=== PATIENT | female | born 1965 | race Two or more races ===

== ENCOUNTER → 2016-07-09 | Outpatient (CLI) | payer BC ==
[~2016-07-09] MED LIST: ATEN50TA; FLUC150T38; HYDROXYCHLOROQUINE; LEVO112T4; MEDR10TA9; PHEN60IN; RANI25TA
[2016-07-09 08:34] LABS: Urine RBC None Seen /hpf (0 - 4)
[2016-07-09 08:48] LABS: Basophils # (auto) 0 uL; Basophils % (auto) 0.5 % (0.0-2.0); Eosinophils # (auto) 0.1 uL; Eosinophils % (auto) 1.9 % (0.0-7.0); Hematocrit 39.8 % (36.0-46.0); Hemoglobin 13.5 g/dL (12.2-16.2); Lymphocytes # (auto) 1.5 uL; Lymphocytes % (auto) 27.4 % (10.0-50.0); Mean Corpuscular Hemoglobin 29.7 pg (28.0-32.0); Mean Corpuscular Volume 87.4 fL (80.0-100.0); Mean Platelet Volume 8.4 fL (7.4-10.4); Monocytes # (auto) 0.4 uL; Monocytes % (auto) 7.5 % (0.0-12.0); Neutrophils # (auto) 3.3 uL; Neutrophils % (auto) 62.7 % (37.0-80.0); Platelet Count (auto) 276 10^3/uL (140-450); Red Cell Distribution Width 14.1 % (11.6-16.0); White Blood Cell 5.3 10^3/uL (4.4-10.8)
[2016-07-09 09:03] LABS: Urine Bilirubin Negative (Negative); Urine Blood Negative /uL (Negative); Urine Color Yellow (Yellow); Urine Glucose Normal (Normal); Urine Ketone Negative (Negative); Urine Nitrite Negative (Negative); Urine Squamous Epithelial Cell FEW /hpf (<5); Urine Urobilinogen Normal (Negative); Urine pH 5.5 (5.0-8.0)
[2016-07-09 09:38] LABS: Albumin 3.3 g/dL (3.4-5.0); BUN/Creatinine Ratio 18.6; Calcium 8.8 mg/dL (8.5-10.1); Phosphorus 3.1 mg/dL (2.5-4.90)
[2016-07-09 10:36] LABS: Potassium 4.1 mmol/L (3.5-5.1)
== END | disposition home or self-care (01) ==
LOC: LAB 08:19
PROVIDERS: ATTEND Internal Medicine
DX: Z00.00 Encounter for general adult medical examination without abnormal findings (principal); I10 Essential (primary) hypertension; M05.06 Felty's syndrome, knee; E11.9 Type 2 diabetes mellitus without complications
CPT/HCPCS: 36415; 80061; 80069; 81001; 83970; 85025; 85652; 86141

== ENCOUNTER → 2017-04-18 | Outpatient (CLI) | payer BC ==
[2017-04-18 09:05] LABS: Basophils # (auto) 0 uL; Basophils % (auto) 0.7 % (0.0-2.0); Eosinophils # (auto) 0.1 uL; Eosinophils % (auto) 1.9 % (0.0-7.0); Hematocrit 39.5 % (36.0-46.0); Hemoglobin 13.2 g/dL (12.2-16.2); Lymphocytes # (auto) 0.9 uL; Lymphocytes % (auto) 19.8 % (10.0-50.0); Mean Corpuscular Hemoglobin 29.1 pg (28.0-32.0); Mean Corpuscular Hgb Conc. 33.4 g/dL (32.0-36.0); Mean Corpuscular Volume 87.1 fL (80.0-100.0); Monocytes # (auto) 0.4 uL; Monocytes % (auto) 9.1 % (0.0-12.0); Neutrophils # (auto) 3.3 uL; Neutrophils % (auto) 68.5 % (37.0-80.0); Nucleated Red Blood Cells % 0.1 %; Platelet Count (auto) 236 10^3/uL (140-450); Red Blood Cells 4.54 10^6/uL (4.0-5.20); Red Cell Distribution Width 13.9 % (11.8-14.3); White Blood Cell 4.8 10^3/uL (4.4-10.8)
[2017-04-18 09:40] LABS: Urine Bacteria NONE SEEN /hpf (None Seen); Urine Blood Negative /uL (Negative); Urine Hyaline Cast FEW /lpf (0 - 2); Urine Mucus FEW (None Seen); Urine Specific Gravity 1.025 (1.001-1.035); Urine WBC 4 /hpf (0 - 5)
[2017-04-18 09:42] LABS: Albumin 3.1 g/dL (3.4-5.0); BUN/Creatinine Ratio 12.2; Bilirubin, Total 0.5 mg/dL (0.2-1.0); CRP High Sensitivity 0.17 mg/dL (< 0.3); Calcium 8.6 mg/dL (8.5-10.1); Phosphorus 3.4 mg/dL (2.5-4.90); Potassium 4.3 mmol/L (3.5-5.1); Total Protein 7.3 g/dL (6.4-8.2); Uric Acid 5.5 mg/dL (2.6-6.0)
[2017-04-18 09:48] LABS: Protein, Urine 121.3 mg/dL (0.0-11.9)
== END | disposition home or self-care (01) ==
LOC: LAB 08:27
DX: I12.9 Hypertensive chronic kidney disease with stage 1 through stage 4 chronic kidney disease, or unspecified chronic kidney disease (principal); N18.3 Chronic kidney disease, stage 3 (moderate); D63.1 Anemia in chronic kidney disease; E21.3 Hyperparathyroidism, unspecified; E78.5 Hyperlipidemia, unspecified; M06.9 Rheumatoid arthritis, unspecified; E78.00 Pure hypercholesterolemia, unspecified; E03.8 Other specified hypothyroidism
CPT/HCPCS: 36415; 80053; 80069; 81001; 82306; 82570; 83036; 83970; 84156; 84550; 85025; 85652; 86141

== ENCOUNTER → 2018-01-06 | Outpatient (CLI) | payer BC ==
[2018-01-06 08:24] LABS: Basophils # (auto) 0 uL; Eosinophils # (auto) 0.1 uL; Eosinophils % (auto) 1.6 % (0.0-7.0); Hematocrit 39.6 % (36.0-46.0); Hemoglobin 13.2 g/dL (12.2-16.2); Lymphocytes # (auto) 1.6 uL; Lymphocytes % (auto) 32.6 % (10.0-50.0); Mean Corpuscular Hemoglobin 30.5 pg (28.0-32.0); Mean Corpuscular Hgb Conc. 33.4 g/dL (32.0-36.0); Mean Corpuscular Volume 91.2 fL (80.0-100.0); Monocytes # (auto) 0.5 uL; Monocytes % (auto) 9.2 % (0.0-12.0); Neutrophils # (auto) 2.7 uL; Neutrophils % (auto) 55.6 % (37.0-80.0); Nucleated Red Blood Cells % 0.1 %; Platelet Count (auto) 235 10^3/uL (140-450); Red Blood Cells 4.34 10^6/uL (4.0-5.20); Red Cell Distribution Width 14.7 % (11.8-14.3); White Blood Cell 4.9 10^3/uL (4.4-10.8)
[2018-01-06 08:49] LABS: Albumin 3.2 g/dL (3.4-5.0); BUN/Creatinine Ratio 19.2; Bilirubin, Total 0.3 mg/dL (0.2-1.0); Calcium 8.9 mg/dL (8.5-10.1); Potassium 4.2 mmol/L (3.5-5.1); Total Protein 7.3 g/dL (6.4-8.2)
== END | disposition home or self-care (01) ==
LOC: LAB 08:02
PROVIDERS: ATTEND Physician Assistant
DX: Z00.01 Encounter for general adult medical examination with abnormal findings (principal); I12.9 Hypertensive chronic kidney disease with stage 1 through stage 4 chronic kidney disease, or unspecified chronic kidney disease; N18.4 Chronic kidney disease, stage 4 (severe); M06.9 Rheumatoid arthritis, unspecified; E03.9 Hypothyroidism, unspecified; E55.9 Vitamin D deficiency, unspecified; E78.2 Mixed hyperlipidemia; K21.9 Gastro-esophageal reflux disease without esophagitis
CPT/HCPCS: 36415; 80053; 80061; 82306; 84443; 85025

== ENCOUNTER 2018-05-12 22:27 | Inpatient (IN) | payer BC ==
[~2018-05-12] VITALS: Ht 157.5 cm; Wt 135.7 kg
[2018-05-13 02:15] LABS: Basophils # (auto) 0 uL; Basophils % (auto) 0.6 % (0.0-2.0); Eosinophils # (auto) 0 uL; Hematocrit 35.4 % (36.0-46.0); Hemoglobin 11.6 g/dL (12.2-16.2); Lymphocytes # (auto) 0.5 uL; Lymphocytes % (auto) 6.8 % (10.0-50.0); Mean Corpuscular Hemoglobin 29.3 pg (28.0-32.0); Mean Corpuscular Hgb Conc. 32.8 g/dL (32.0-36.0); Mean Corpuscular Volume 89.2 fL (80.0-100.0); Monocytes # (auto) 0.2 uL; Monocytes % (auto) 3.2 % (0.0-12.0); Neutrophils # (auto) 6.4 uL; Neutrophils % (auto) 89.4 % (37.0-80.0); Nucleated Red Blood Cells % 0.1 %; Platelet Count (auto) 161 10^3/uL (140-450); Red Blood Cells 3.97 10^6/uL (4.0-5.20); Red Cell Distribution Width 14.4 % (11.8-14.3); White Blood Cell 7.2 10^3/uL (4.4-10.8)
[2018-05-13 02:29] LABS: Alanine Aminotransferase 30 U/L (13-56); Albumin 2.7 g/dL (3.4-5.0); Anion Gap 8 (5-15); Aspartate Aminotransferase 44 U/L (15-37); Blood Urea Nitrogen 19 mg/dL (7-18); Calcium 7.9 mg/dL (8.5-10.1); Carbon Dioxide 25 mmol/L (21-32); Chloride 104 mmol/L (98-107); Glucose 91 mg/dL (74-106); Potassium 3.7 mmol/L (3.5-5.1); Sodium 137 mmol/L (136-145)
[2018-05-13 02:34] LABS: Alkaline Phosphatase 63 U/L (45-117); BUN/Creatinine Ratio 15.6; Bilirubin, Total 0.3 mg/dL (0.2-1.0); GFR African American 60 mL/min; GFR Non-African American 49 mL/min; Total Protein 6.9 g/dL (6.4-8.2)
[2018-05-13] MEDS ORDERED: SPIRONOLACTONE 25 MG TAB PO ONE (08:15)
[2018-05-13] MEDS ORDERED: cefTRIAXone 1GM/50ML D5W 50 ML IV ONE (08:15)
[2018-05-13] MEDS ORDERED: FUROSEMIDE 40 MG/4 ML VIAL IV ONE (08:15)
[2018-05-13 10:42] LABS: Urine Bacteria FEW /hpf (None Seen); Urine Blood Negative /uL (Negative); Urine Mucus FEW (None Seen); Urine Specific Gravity 1.012 (1.001-1.035); Urine WBC 1 /hpf (0 - 5)
[2018-05-13] MEDS ORDERED: MORPHINE SULFATE 4 MG/ML SYR/VIAL IV PRN ×2 (11:00)
[2018-05-13] MEDS ORDERED: ONDANSETRON HCL 4 MG/2 ML VIAL IV PRN (11:00)
[2018-05-13] MEDS ORDERED: HYDROcodone-ACET 5/325MG TAB PO PRN (11:00)
[2018-05-13] MEDS ORDERED: VANCOMYCIN PER PHARMACY 0 MG IV SCH (11:00)
[2018-05-13] MEDS ORDERED: ACETAMINOPHEN 500 MG TAB PO PRN (11:00)
[2018-05-13] MEDS ORDERED: NITROGLYCERIN 0.4 MG SL TAB SL PRN (11:00)
[2018-05-13] MEDS ORDERED: BACL10TA PO (11:19)
[2018-05-13] MEDS ORDERED: TRAM50TA2 PO (11:19)
[2018-05-13] MEDS ORDERED: ATOR1TAB PO (11:19)
[2018-05-13] MEDS ORDERED: CYCL5TAB PO (11:19)
[2018-05-13] MEDS ORDERED: ATEN-60 PO (11:19)
[2018-05-13] MEDS ORDERED: HYDR-4441 PO (11:19)
[2018-05-13] MEDS ORDERED: DEXL60CA3 PO (11:19)
[2018-05-13] MEDS ORDERED: FURO40TA4 PO (11:19)
[2018-05-13] MEDS ORDERED: LEVO112T4 PO (11:19)
[2018-05-13] MEDS ORDERED: AML5T PO (11:19)
[2018-05-13] MEDS ORDERED: DICL-176 PO (11:19)
[2018-05-13] MEDS ORDERED: PILO7.5T4 PO (11:19)
[2018-05-13] MEDS ORDERED: LISI-646 PO (11:19)
[2018-05-13] MEDS: AZITHROMYCIN 500MG/ 250ML 250 ML IV SCH (11:38)
[2018-05-13] MEDS: ALBUTEROL SULF 2.5 MG/0.5ML(0.5%) NEB SOLN NEB SCH ×2 (12:15→17:50)
[2018-05-13] MEDS: IPRATROPIUM BROM 0.5 MG/2.5ML INH SOL NEB SCH ×2 (12:15→17:50)
[2018-05-13] MEDS: VANCOMYCIN 1GM/250ML 250 ML IV SCH (13:02)
[2018-05-13] MEDS: PILOCARPINE 5 MG TAB PO SCH ×2 (14:44→22:28)
[2018-05-13 14:45] VITALS: BP 125/72
[2018-05-13 16:23] VITALS: BP 125/72
[2018-05-13 18:00] VITALS: BP 124/69
[2018-05-13] MEDS: ACETAMINOPHEN 500 MG TAB PO PRN (19:41)
[2018-05-13 21:47] VITALS: BP 108/63
[2018-05-13] MEDS: HYDROXYCHLOROQUINE SULFATE 200 MG TAB PO SCH (22:28)
[2018-05-13] MEDS: OSELTAMIVIR 75 MG CAP PO SCH (22:28)
[2018-05-13] MEDS: ATENOLOL 25 MG TAB PO SCH (22:29)
[2018-05-14] MEDS: VANCOMYCIN 1GM/250ML 250 ML IV SCH ×2 (00:42→13:50)
[2018-05-14 02:03] VITALS: BP 132/66
[2018-05-14] MEDS: PILOCARPINE 5 MG TAB PO SCH ×3 (06:31→22:28)
[2018-05-14] MEDS: ACETAMINOPHEN 500 MG TAB PO PRN (06:32)
[2018-05-14] MEDS ORDERED: LEVOTHYROXINE SODIUM 25 MCG TAB PO SCH (07:00)
[2018-05-14] MEDS: IPRATROPIUM BROM 0.5 MG/2.5ML INH SOL NEB SCH ×4 (07:15→18:20)
[2018-05-14] MEDS: ALBUTEROL SULF 2.5 MG/0.5ML(0.5%) NEB SOLN NEB SCH ×4 (07:15→18:20)
[2018-05-14 07:17] VITALS: BP 120/64
[2018-05-14 07:55] LABS: Basophils # (auto) 0 uL; Basophils % (auto) 0.3 % (0.0-2.0); Eosinophils # (auto) 0 uL; Hematocrit 32.2 % (36.0-46.0); Hemoglobin 10.7 g/dL (12.2-16.2); Lymphocytes # (auto) 0.5 uL; Lymphocytes % (auto) 7.5 % (10.0-50.0); Mean Corpuscular Hemoglobin 29.2 pg (28.0-32.0); Mean Corpuscular Hgb Conc. 33.3 g/dL (32.0-36.0); Mean Corpuscular Volume 87.8 fL (80.0-100.0); Monocytes # (auto) 0.4 uL; Monocytes % (auto) 6.3 % (0.0-12.0); Neutrophils # (auto) 5.5 uL; Neutrophils % (auto) 85.9 % (37.0-80.0); Platelet Count (auto) 137 10^3/uL (140-450); Red Blood Cells 3.66 10^6/uL (4.0-5.20); Red Cell Distribution Width 14.1 % (11.8-14.3); White Blood Cell 6.4 10^3/uL (4.4-10.8)
[2018-05-14 08:12] LABS: Potassium 3.7 mmol/L (3.5-5.1)
[2018-05-14 08:17] LABS: BUN/Creatinine Ratio 15.8
[2018-05-14] MEDS: HYDROXYCHLOROQUINE SULFATE 200 MG TAB PO SCH ×2 (09:12→22:28)
[2018-05-14] MEDS: OSELTAMIVIR 75 MG CAP PO SCH ×2 (09:12→22:28)
[2018-05-14] MEDS: AZITHROMYCIN 500MG/ 250ML 250 ML IV SCH (09:12)
[2018-05-14] MEDS: PANTOPRAZOLE 40 MG TAB PO SCH (09:12)
[2018-05-14] MEDS: ATENOLOL 25 MG TAB PO SCH ×2 (09:24→22:29)
[2018-05-14] MEDS: NICOTINE 21MG/24 HR TOPICAL PATCH TD SCH (09:24)
[2018-05-14] MEDS: LISINOPRIL 5 MG TAB PO SCH (09:25)
[2018-05-14] MEDS ORDERED: ATORVASTATIN 20 MG TAB PO SCH (10:00)
[2018-05-14 10:43] VITALS: BP 114/59
[2018-05-14] MEDS: SODIUM CHLORIDE 0.9% 1,000 ML IV SCH (16:48)
[2018-05-14] MEDS: PIPERACILLIN-TAZOB 3.375GM 100 ML IV SCH (18:06)
[2018-05-15] MEDS: IPRATROPIUM BROM 0.5 MG/2.5ML INH SOL NEB SCH ×5 (00:10→23:59)
[2018-05-15] MEDS: ALBUTEROL SULF 2.5 MG/0.5ML(0.5%) NEB SOLN NEB SCH ×5 (00:10→23:59)
[2018-05-15] MEDS: PIPERACILLIN-TAZOB 3.375GM 100 ML IV SCH ×5 (01:30→23:49)
--- NOTE | 2018-05-15 02:51 | NUR ---
FIO2 TITRATED TO 75%
[2018-05-15] MEDS: PILOCARPINE 5 MG TAB PO SCH ×3 (06:22→21:41)
--- NOTE | 2018-05-15 06:50 | NUR ---
Respiratory note: RECEIVED PATIENT ON HFNC WITH THE CHARTED SETTINGS. SPO2 96%. SHE IS RESTING COMFORTABLY AND TOLERATING HIGH FLOW WELL. FIO2 DECREASED TO 70% AT THIS TIME. LI VELÁZQUEZ MADE AWARE OF CHANGE. WILL CONTINUE TO TITRATE HIGH FLOW NEEDED.
[2018-05-15] MEDS: LEVOTHYROXINE SODIUM 25 MCG TAB PO SCH (07:00)
[2018-05-15] MEDS: SODIUM CHLORIDE 0.9% 1,000 ML IV SCH (09:12)
[2018-05-15 09:46] LABS: BUN/Creatinine Ratio 11.8; Calcium 8.4 mg/dL (8.5-10.1); Magnesium 2.4 mg/dL (1.6-2.6); Potassium 3.9 mmol/L (3.5-5.1)
[2018-05-15] MEDS ORDERED: ATORVASTATIN 20 MG TAB PO SCH (10:00)
[2018-05-15] MEDS: NICOTINE 21MG/24 HR TOPICAL PATCH TD SCH (10:00)
[2018-05-15] MEDS: AZITHROMYCIN 500MG/ 250ML 250 ML IV SCH (10:08)
[2018-05-15] MEDS: FUROSEMIDE 40 MG TAB PO SCH (10:08)
[2018-05-15] MEDS: POTASSIUM CHL 20 Meq TABLET PO SCH (10:08)
[2018-05-15] MEDS: OSELTAMIVIR 75 MG CAP PO SCH ×2 (10:09→21:41)
[2018-05-15] MEDS: LISINOPRIL 5 MG TAB PO SCH (10:09)
[2018-05-15] MEDS: PANTOPRAZOLE 40 MG TAB PO SCH (10:09)
[2018-05-15] MEDS: ENOXAPARIN SOD 40 MG/0.4 ML SYRINGE SC SCH (10:09)
[2018-05-15] MEDS: HYDROXYCHLOROQUINE SULFATE 200 MG TAB PO SCH ×2 (10:09→21:41)
[2018-05-15] MEDS: ATENOLOL 25 MG TAB PO SCH ×2 (10:11→21:41)
[2018-05-15 10:25] VITALS: BP 144/76
[2018-05-15 10:32] LABS: Basophils # (auto) 0 uL; Basophils % (auto) 0.3 % (0.0-2.0); Eosinophils # (auto) 0 uL; Hematocrit 31.5 % (36.0-46.0); Hemoglobin 10.5 g/dL (12.2-16.2); Lymphocytes # (auto) 0.6 uL; Lymphocytes % (auto) 12.1 % (10.0-50.0); Mean Corpuscular Hemoglobin 29.3 pg (28.0-32.0); Mean Corpuscular Hgb Conc. 33.5 g/dL (32.0-36.0); Mean Corpuscular Volume 87.5 fL (80.0-100.0); Monocytes # (auto) 0.4 uL; Monocytes % (auto) 8.9 % (0.0-12.0); Neutrophils # (auto) 3.8 uL; Neutrophils % (auto) 78.7 % (37.0-80.0); Platelet Count (auto) 156 10^3/uL (140-450); Red Blood Cells 3.59 10^6/uL (4.0-5.20); Red Cell Distribution Width 14.3 % (11.8-14.3); White Blood Cell 4.9 10^3/uL (4.4-10.8)
[2018-05-15] MEDS: VANCOMYCIN 1GM/250ML 250 ML IV SCH ×2 (12:21)
[2018-05-15] MEDS ORDERED: ALBUTEROL SULF 2.5 MG/0.5ML(0.5%) NEB SOLN NEB PRN (14:45)
[2018-05-15] MEDS ORDERED: IODIXANOL 320MG/ML 100ML BTL IV ONE (15:24)
[2018-05-15] MEDS ORDERED: IOHEXOL 350 MG/ML 100ML IJ ONE (16:05)
[2018-05-16] MEDS: SODIUM CHLORIDE 0.9% 1,000 ML IV SCH ×2 (01:53→19:41)
--- NOTE | 2018-05-16 05:47 | NUR ---
Respiratory note: CHANGED HIGH FLOW WATER WITHOUT INCIDENT.
[2018-05-16] MEDS: ALBUTEROL SULF 2.5 MG/0.5ML(0.5%) NEB SOLN NEB SCH ×3 (05:59→18:00)
[2018-05-16] MEDS: IPRATROPIUM BROM 0.5 MG/2.5ML INH SOL NEB SCH ×3 (05:59→18:00)
[2018-05-16] MEDS: PILOCARPINE 5 MG TAB PO SCH ×3 (06:00→22:00)
[2018-05-16] MEDS: LEVOTHYROXINE SODIUM 25 MCG TAB PO SCH (06:40)
[2018-05-16 06:53] LABS: Basophils # (auto) 0 uL; Basophils % (auto) 0.4 % (0.0-2.0); Calcium 8.3 mg/dL (8.5-10.1); Eosinophils # (auto) 0 uL; Eosinophils % (auto) 0.5 % (0.0-7.0); Hematocrit 29.7 % (36.0-46.0); Hemoglobin 9.8 g/dL (12.2-16.2); Lymphocytes # (auto) 0.6 uL; Lymphocytes % (auto) 14.4 % (10.0-50.0); Mean Corpuscular Hemoglobin 29.3 pg (28.0-32.0); Mean Corpuscular Hgb Conc. 33.1 g/dL (32.0-36.0); Mean Corpuscular Volume 88.5 fL (80.0-100.0); Monocytes # (auto) 0.5 uL; Monocytes % (auto) 10.5 % (0.0-12.0); Neutrophils # (auto) 3.3 uL; Neutrophils % (auto) 74.2 % (37.0-80.0); Platelet Count (auto) 180 10^3/uL (140-450); Potassium 3.9 mmol/L (3.5-5.1); Red Blood Cells 3.36 10^6/uL (4.0-5.20); White Blood Cell 4.5 10^3/uL (4.4-10.8)
[2018-05-16] MEDS: PIPERACILLIN-TAZOB 3.375GM 100 ML IV SCH ×3 (07:10→18:25)
[2018-05-16 08:18] LABS: % Iron Saturation 4.1 % (15-50)
[2018-05-16] MEDS: NICOTINE 21MG/24 HR TOPICAL PATCH TD SCH (10:00)
[2018-05-16] MEDS: AZITHROMYCIN 500MG/ 250ML 250 ML IV SCH (10:02)
[2018-05-16] MEDS: POTASSIUM CHL 20 Meq TABLET PO SCH (10:02)
[2018-05-16] MEDS: HYDROXYCHLOROQUINE SULFATE 200 MG TAB PO SCH ×2 (10:26→22:00)
[2018-05-16] MEDS: ENOXAPARIN SOD 40 MG/0.4 ML SYRINGE SC SCH (10:26)
[2018-05-16] MEDS: OSELTAMIVIR 75 MG CAP PO SCH ×2 (10:26→22:00)
[2018-05-16] MEDS: PANTOPRAZOLE 40 MG TAB PO SCH (10:26)
[2018-05-16] MEDS: FUROSEMIDE 40 MG TAB PO SCH (10:26)
[2018-05-16] MEDS: ATENOLOL 25 MG TAB PO SCH ×2 (10:26→22:00)
[2018-05-16 10:48] VITALS: BP 107/52
--- NOTE | 2018-05-16 11:48 | NUR ---
Respiratory note: TITRATED FIO2 TO 60% PT TOLERATING WELL. WILL CONTINUE TO MONITOR PT.
[2018-05-16] MEDS ORDERED: HYDROcodone-ACET 5/325MG TAB PO PRN (14:15)
[2018-05-16] MEDS ORDERED: MORPHINE SULFATE 4 MG/ML SYR/VIAL IV PRN (14:15)
[2018-05-16 18:00] VITALS: BP 130/79
[2018-05-16] MEDS: methylPREDNISolone SOD SUCC 40 MG/ML VL IV SCH (22:00)
[2018-05-17] MEDS: PIPERACILLIN-TAZOB 3.375GM 100 ML IV SCH ×4 (00:17→17:29)
[2018-05-17] MEDS: IPRATROPIUM BROM 0.5 MG/2.5ML INH SOL NEB SCH ×4 (05:50→18:41)
[2018-05-17] MEDS: ALBUTEROL SULF 2.5 MG/0.5ML(0.5%) NEB SOLN NEB SCH ×4 (05:50→18:41)
[2018-05-17 06:30] LABS: Basophils # (auto) 0 uL; Basophils % (auto) 0.1 % (0.0-2.0); Eosinophils # (auto) 0 uL; Hematocrit 31.5 % (36.0-46.0); Hemoglobin 10.5 g/dL (12.2-16.2); Lymphocytes # (auto) 0.4 uL; Lymphocytes % (auto) 10.5 % (10.0-50.0); Mean Corpuscular Hemoglobin 29.4 pg (28.0-32.0); Mean Corpuscular Hgb Conc. 33.3 g/dL (32.0-36.0); Mean Corpuscular Volume 88.2 fL (80.0-100.0); Monocytes # (auto) 0.2 uL; Monocytes % (auto) 5.6 % (0.0-12.0); Neutrophils # (auto) 3.4 uL; Neutrophils % (auto) 83.8 % (37.0-80.0); Nucleated Red Blood Cells % 0.1 %; Platelet Count (auto) 231 10^3/uL (140-450); Red Blood Cells 3.57 10^6/uL (4.0-5.20)
[2018-05-17 06:49] LABS: BUN/Creatinine Ratio 11.5; Calcium 8.8 mg/dL (8.5-10.1); Potassium 4.4 mmol/L (3.5-5.1)
[2018-05-17] MEDS ORDERED: LEVOTHYROXINE SODIUM 25 MCG TAB PO SCH (08:00)
[2018-05-17] MEDS: PILOCARPINE 5 MG TAB PO SCH ×2 (08:00→16:00)
[2018-05-17] MEDS ORDERED: LEVOTHYROXINE SODIUM 100 MCG TAB ONE (08:41)
[2018-05-17] MEDS: LEVOTHYROXINE SODIUM 100 MCG TAB PO SCH (09:02)
[2018-05-17] MEDS: POTASSIUM CHL 20 Meq TABLET PO SCH (10:00)
[2018-05-17] MEDS: NICOTINE 21MG/24 HR TOPICAL PATCH TD SCH (10:00)
[2018-05-17] MEDS: ENOXAPARIN SOD 40 MG/0.4 ML SYRINGE SC SCH (10:45)
[2018-05-17] MEDS: methylPREDNISolone SOD SUCC 40 MG/ML VL IV SCH ×2 (10:45→22:37)
[2018-05-17] MEDS: OSELTAMIVIR 75 MG CAP PO SCH ×2 (10:45→22:38)
[2018-05-17] MEDS: PANTOPRAZOLE 40 MG TAB PO SCH (10:46)
[2018-05-17] MEDS: ATENOLOL 25 MG TAB PO SCH ×2 (10:46→22:37)
[2018-05-17] MEDS: AZITHROMYCIN 500MG/ 250ML 250 ML IV SCH (10:47)
[2018-05-17] MEDS: HYDROXYCHLOROQUINE SULFATE 200 MG TAB PO SCH ×2 (10:47→22:36)
[2018-05-17] MEDS: FUROSEMIDE 40 MG TAB PO SCH (10:48)
[2018-05-17] MEDS: SODIUM CHLORIDE 0.9% 1,000 ML IV SCH (11:18)
[2018-05-17 11:54] VITALS: BP 122/65
[2018-05-17] MEDS: SODIUM FERR GLUC 62.5MG/5ML 125 MG in SODIUM CHL 0.9% 100 ML IV SCH (12:00)
--- NOTE | 2018-05-17 14:50 | NUR ---
Midline Placement to left brachial x 2 attempts. 18g/10cm in length. Flushes easily, blood return obtained from single port. Tolerated well. Primary RN notified. Lot#[id number]. Addendum: 05/17/18 at 1455 by Selene Dumont RN RN Lot#[id number]
[2018-05-17 15:35] VITALS: BP 116/72
--- NOTE | 2018-05-17 15:35 | NUR ---
Admit to [facility] Tadmitted to [facility] via gurney on manager payer, and portable 02. Patient transfered to bed, connected to unit monitoring and oxygen, and weighed by bedscale. Patient oriented to Timoteo castillo RN, unit, room, bed, and unit policies regarding patient care and visiting hours. All questions and concerns addressed, patient verbalized understanding. NOTE:
[2018-05-17 16:27] VITALS: BP 116/72
--- NOTE | 2018-05-17 17:05 | NUR ---
COMPLETE LINEN CHANGE PERFORMED
[2018-05-17 19:48] VITALS: BP 127/72
[2018-05-18] MEDS: PIPERACILLIN-TAZOB 3.375GM 100 ML IV SCH ×4 (00:32→18:37)
[2018-05-18] MEDS: SODIUM CHLORIDE 0.9% 1,000 ML IV SCH ×2 (03:50→22:26)
[2018-05-18 04:00] VITALS: BP 110/59
[2018-05-18] MEDS: IPRATROPIUM BROM 0.5 MG/2.5ML INH SOL NEB SCH ×5 (07:35→19:00)
[2018-05-18] MEDS: ALBUTEROL SULF 2.5 MG/0.5ML(0.5%) NEB SOLN NEB SCH ×5 (07:35→19:00)
[2018-05-18] MEDS: LEVOTHYROXINE SODIUM 100 MCG TAB PO SCH (07:39)
[2018-05-18 08:00] VITALS: BP 126/66
[2018-05-18] MEDS: PILOCARPINE 5 MG TAB PO SCH ×3 (08:00→15:45)
[2018-05-18] MEDS: NICOTINE 21MG/24 HR TOPICAL PATCH TD SCH (10:00)
[2018-05-18] MEDS: HYDROXYCHLOROQUINE SULFATE 200 MG TAB PO SCH ×2 (10:00→22:02)
[2018-05-18] MEDS: ENOXAPARIN SOD 40 MG/0.4 ML SYRINGE SC SCH (11:04)
[2018-05-18] MEDS: methylPREDNISolone SOD SUCC 40 MG/ML VL IV SCH ×2 (11:04→22:00)
[2018-05-18] MEDS: PANTOPRAZOLE 40 MG TAB PO SCH (11:05)
[2018-05-18] MEDS: OSELTAMIVIR 75 MG CAP PO SCH (11:05)
[2018-05-18] MEDS: FUROSEMIDE 40 MG TAB PO SCH (11:05)
[2018-05-18] MEDS: POTASSIUM CHL 20 Meq TABLET PO SCH (11:05)
[2018-05-18] MEDS: AZITHROMYCIN 500MG/ 250ML 250 ML IV SCH (11:06)
[2018-05-18] MEDS: ATENOLOL 25 MG TAB PO SCH ×2 (11:06→22:02)
[2018-05-18 12:00] VITALS: BP 128/82
[2018-05-18] MEDS: SODIUM FERR GLUC 62.5MG/5ML 125 MG in SODIUM CHL 0.9% 100 ML IV SCH (12:42)
--- NOTE | 2018-05-18 14:29 | NUR ---
NUTRITION ASSESSMENT NOTES Please refer to link notes of nutrition screen form filed under the intervention section of the plan of care for further details. Est. Needs based on AdBW (71 kg): 1400 kcal to 1750 kcal (20-25 kcal/kgAdBW), 71 gms to 85 gms pro (1.0-1.2 gms/kgBW). Will continue to monitor pertinent labs and reassess nutrient needs prn Thank you. Addendum: 05/18/18 at [address] Amended: Links added.
[2018-05-18 16:00] VITALS: BP 118/73
[2018-05-18 17:43] VITALS: BP 118/72
--- NOTE | 2018-05-18 19:30 | NUR ---
Opening shift note Patient in bed alert and oriented x 4 verbally coherent, able to make needs known. Patient's respiration even and unlabored. Denies pain and discomfort at this time. Plan of care discussed, patient verbalized understanding. All needs attended, will continue to monitor.
[2018-05-18 22:00] VITALS: BP 129/81
--- NOTE | 2018-05-18 22:00 | NUR ---
Incentive spirometer provided and instruction for use given. Patient able to return demonstrate proper use. Will continue to monitor.
[2018-05-19] MEDS: PILOCARPINE 5 MG TAB PO SCH ×3 (00:07→16:00)
[2018-05-19] MEDS: PIPERACILLIN-TAZOB 3.375GM 100 ML IV SCH ×4 (00:07→18:00)
[2018-05-19 05:00] VITALS: BP 121/68
[2018-05-19] MEDS: ALBUTEROL SULF 2.5 MG/0.5ML(0.5%) NEB SOLN NEB SCH ×3 (06:14→19:15)
[2018-05-19] MEDS: IPRATROPIUM BROM 0.5 MG/2.5ML INH SOL NEB SCH ×3 (06:14→19:15)
[2018-05-19 07:06] LABS: BUN/Creatinine Ratio 17.6; Calcium 8.9 mg/dL (8.5-10.1); Potassium 4.1 mmol/L (3.5-5.1)
--- NOTE | 2018-05-19 07:30 | NUR ---
OPENING NOTE Assumed care of patient from NOC RN, Makayal. Patient awake and alert with no S/S of distress/SOB or pain. Nasal cannula in place, connected to 4L O2. Instructed on POC and to call for assist PRN, verbalized understanding. Bed in lowest, locked position with side rails up x2. Isolation precautions in place and call light within reach. Will continue to monitor for changes Q1hr and PRN.
--- NOTE | 2018-05-19 07:40 | NUR ---
CLOSING NOTE Endorsed care of patient to Makayla VERNON RN. RN made aware of discharge, states she will have patient sign discharge paperwork. Patient resting in bed, no S/S of distress noted. Addendum: 05/19/18 at 2031 by ROBBIN LENZ RN Correction: wrong time
--- NOTE | 2018-05-19 08:53 | NUR ---
PT REPORTS THAT SHE WALKS FINE AND DOES NOT NEED P.T.
[2018-05-19 09:00] VITALS: BP 121/78
[2018-05-19] MEDS ORDERED: methylPREDNISolone SOD SUCC 40 MG/ML VL IV SCH (11:15)
[2018-05-19] MEDS: POTASSIUM CHL 20 Meq TABLET PO SCH (11:27)
[2018-05-19] MEDS: PANTOPRAZOLE 40 MG TAB PO SCH (11:27)
[2018-05-19] MEDS: FUROSEMIDE 40 MG TAB PO SCH (11:27)
[2018-05-19] MEDS: HYDROXYCHLOROQUINE SULFATE 200 MG TAB PO SCH (11:27)
[2018-05-19] MEDS: ENOXAPARIN SOD 40 MG/0.4 ML SYRINGE SC SCH (11:28)
[2018-05-19] MEDS: NICOTINE 21MG/24 HR TOPICAL PATCH TD SCH (11:28)
[2018-05-19] MEDS: ATENOLOL 25 MG TAB PO SCH (11:28)
[2018-05-19] MEDS: SODIUM FERR GLUC 62.5MG/5ML 125 MG in SODIUM CHL 0.9% 100 ML IV SCH (12:30)
[2018-05-19 12:55] VITALS: BP 111/64
[2018-05-19] MEDS: SODIUM CHLORIDE 0.9% 1,000 ML IV SCH (13:10)
--- NOTE | 2018-05-19 13:43 | NUR ---
Respiratory note: ROOM AIR ABG DRAWN AT 1330, PER DR. WHALEY'S ORDER. PATIENT WAS PLACED BACK ON 3LPM NASAL CANNULA POST DRAW.
[2018-05-19] MEDS ORDERED: DOXY-216 PO (13:57)
[2018-05-19] MEDS ORDERED: SACC250C PO (13:57)
[2018-05-19] MEDS ORDERED: ALBUAER3 IN (13:57)
--- NOTE | 2018-05-19 14:46 | NUR ---
SS ORDER: SG WAS FAXED TO AT 1400 HRS. SG TO CALL PT TO COORDINATE DELEVERY. I WILL CALL BEFORE I LEAVE TO MAKE SURE 02 DELIVERY IS PROGRESSING
--- NOTE | 2018-05-19 16:03 | NUR ---
SG'S PHONE # IS [phone] OR [phone] I GAVE AUTH OF [id number] TO EVAN AND SENT PAPER WORK OVER TO YAZMIN/TIFFANIE FOR APPROVAL
[2018-05-19 16:40] VITALS: BP 123/72
--- NOTE | 2018-05-19 19:30 | NUR ---
Opening shift note Patient in dangling both feet at the side of the bed alert and oriented. Verbally coherent, able to make needs known. Patient's respiration even and unlabored, denies pain and discomfort at this time. Patient awaiting discharge papers from am shift RN. Will continue to monitor.
--- NOTE | 2018-05-19 19:40 | NUR ---
CLOSING NOTE Endorsed care of patient to NOC RNMakayla. RN made aware of discharge, states she will have patient sign discharge paperwork. Patient resting in bed, no S/S of distress noted.
--- NOTE | 2018-05-19 20:05 | NUR ---
Discharge instructions given as ordered. Encourage to follow up with PMD as instructed. All questions and concerns addressed. Patient verbalized understanding. Medication reconciliation form completed and copy given to patient. IV removed with catheter intact, pressure dressing applied, Telemetry unit returned to [facility]. Patient taken to vehicle via wheelchair. Patient will drive self to home with all personal belongings and Oxygen tank, accompanied by staff. No distress noted at time of departure.
== END 2018-05-19 20:05 | disposition home or self-care (01) | DRG 871 ==
LOC: ER 22:27 → OVERFLOW 05-13 11:02 → MERGE 05-13 11:02 → DOU IN ICU 05-17 15:48 → TELE-EAST 05-18 17:39
PROVIDERS: ADMIT Nurse Practitioner Acute Care; ATTEND Internal Medicine
DX: A41.9 Sepsis, unspecified organism (principal); J10.00 Influenza due to other identified influenza virus with unspecified type of pneumonia; J96.00 Acute respiratory failure, unspecified whether with hypoxia or hypercapnia; I50.43 Acute on chronic combined systolic (congestive) and diastolic (congestive) heart failure; N17.0 Acute kidney failure with tubular necrosis; Z68.43 Body mass index [BMI] 50.0-59.9, adult; J44.0 Chronic obstructive pulmonary disease with (acute) lower respiratory infection; J44.1 Chronic obstructive pulmonary disease with (acute) exacerbation; I42.0 Dilated cardiomyopathy; I13.0 Hypertensive heart and chronic kidney disease with heart failure and stage 1 through stage 4 chronic kidney disease, or unspecified chronic kidney disease; D63.8 Anemia in other chronic diseases classified elsewhere; E03.9 Hypothyroidism, unspecified; E66.01 Morbid (severe) obesity due to excess calories; E78.5 Hyperlipidemia, unspecified; Z88.8 Allergy status to other drugs, medicaments and biological substances; K21.9 Gastro-esophageal reflux disease without esophagitis; M06.9 Rheumatoid arthritis, unspecified; M35.00 Sjogren syndrome, unspecified; M79.7 Fibromyalgia; Z79.890 Hormone replacement therapy; Z96.659 Presence of unspecified artificial knee joint; G89.29 Other chronic pain; M54.9 Dorsalgia, unspecified; F17.210 Nicotine dependence, cigarettes, uncomplicated; Z90.49 Acquired absence of other specified parts of digestive tract; N18.3 Chronic kidney disease, stage 3 (moderate)
CPT/HCPCS: 36415; 36600; 71045; 71275; 80048; 80053; 80061; 80202; 81001; 82805; 83540; 83550; 83735; 83880; 84439; 84443; 84484; 85025; 85379; 87040; 87077; 87081; 87186; 87804; 93005; 93306; 94640; 96365; 96367; 96375; G0378; J0696; J2405; J2543; Q9967

== ENCOUNTER → 2018-06-30 | Outpatient (CLI) | payer BC ==
[~2018-06-30] MED LIST changes: +ALBUAER3 IN; +ALBUTEROL SULF 2.5 MG/0.5ML(0.5%) NEB SOLN ONE; +AML5T PO; +ATEN-60 PO; +ATOR1TAB PO; +BACL10TA PO; +CYCL5TAB PO; +DEXL60CA3 PO; +DICL-176 PO; +DOXY-216 PO; +FURO40TA4 PO; +HYDR-4441 PO; +LISI-646 PO; +PILO7.5T4 PO; +SACC250C PO; +TRAM50TA2 PO
== END | disposition home or self-care (01) ==
LOC: RT 08:52
PROVIDERS: ATTEND Internal Medicine Pulmonary Disease
DX: R06.00 Dyspnea, unspecified (principal)
CPT/HCPCS: 94060; J7611